=== PATIENT | female | born 1960 | race American Indian/Alaskan Native ===

== ENCOUNTER 2021-01-04 13:29 | Emergency (ER) | payer OTHER, MEDICAID ==
[2021-01-04 14:55] VITALS: BP 126/79
--- NOTE | 2021-01-04 15:07 | Emergency Department Report ---
ED General Adult HPI - General Chief complaint: Extremity Problem,Nontraumatic Stated complaint: RT GROIN/LEG PAIN Time Seen by Provider: 01/04/21 15:00 Source: patient Mode of arrival: Ambulatory Limitations: No Limitations - History of Present Illness Initial comments: 60-year-old female with a past medical history of hypertension, hyperlipidemia, arthritis, right lower extremity DVT and PE presents to the ER today with complaints of right medial thigh and right groin pain. Patient states that she was riding a bicycle about 4 days ago about 10 minutes. After riding a bicycle she started having the pain in the right groin and right medial thigh. She denies any apparent injury. She states that the pain is worse when she ambulates and stands. She reports mild swelling but mainly to the ankle. Patient states that she thought it was just related to muscle spasms but when it was not getting better she was concerned it could be related to a blood clot. She also reports that she recently drove 4 hours from [place] but was yesterday. She denies any recent surgeries, hospitalizations, any diagnosis of cancer or significant leg injury and she is not on any hormones. She denies any associated chest pain or shortness of breath. 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 She states that she had an IVC filter placed. She did not had ankle surgery a couple years ago after which she again developed another DVT and also a PE despite the IVC filter. She states that she was placed on Eliquis but was only on Eliquis for 6 months. She states she currently does take baby aspirin daily. Complaint: Right thigh/groin pain -: Gradual, days(s) (For) - Related Data Previous Rx's Medication Instructions Recorded Last Taken Type Apixaban [Eliquis] 5 mg PO BID 30 Days tablet 01/04/21 Unknown Rx Apixaban [Eliquis] 10 mg PO BID 7 Days tablet 01/04/21 Unknown Rx Allergies Allergy/AdvReac Type Severity Reaction Status Date / Time No Known Allergies Allergy Unverified 01/04/21 14:52 ED Review of Systems ROS: Stated complaint: RT GROIN/LEG PAIN Other details as noted in HPI Comment: All other systems reviewed and negative Constitutional: denies: chills, diaphoresis, fever, malaise, weakness Eyes: denies: eye pain, eye discharge, vision change ENT: denies: ear pain, throat pain Respiratory: denies: cough, shortness of breath, wheezing Cardiovascular: denies: chest pain, palpitations, dyspnea on exertion, orthopnea, edema, syncope, paroxysmal nocturnal dyspnea Gastrointestinal: denies: abdominal pain, nausea, diarrhea, constipation, hematemesis, melena, hematochezia Genitourinary: denies: urgency, dysuria, discharge Musculoskeletal: arthralgia, myalgia Skin: denies: rash, lesions, change in color, change in hair/nails, pruritus Neurological: denies: headache, weakness, paresthesias Psychiatric: denies: anxiety, depression ED Past Medical Hx - Past Medical History Previous Medical History?: Yes Hx Hypertension: Yes Hx Deep Vein Thrombosis: Yes - Medications Home Medications: Home Medications Medication Instructions Recorded Confirmed Last Taken Type Apixaban [Eliquis] 5 mg PO BID 30 Days tablet 01/04/21 Unknown Rx Apixaban [Eliquis] 10 mg PO BID 7 Days tablet 01/04/21 Unknown Rx ED Physical Exam - General Limitations: No Limitations General appearance: alert, in no apparent distress - Head Head exam: Present: atraumatic, normocephalic, normal inspection - Eye Eye exam: Present: normal appearance, PERRL, EOMI Pupils: Present: normal accommodation - ENT ENT exam: Present: normal exam, mucous membranes moist - Neck Neck exam: Present: normal inspection - Respiratory Respiratory exam: Present: normal lung sounds bilaterally. Absent: respiratory distress - Cardiovascular Cardiovascular Exam: Present: regular rate, normal rhythm, normal heart sounds - GI/Abdominal GI/Abdominal exam: Present: soft. Absent: distended, tenderness, guarding, rebound - Extremities Exam Extremities exam: Present: normal inspection, full ROM, tenderness (Mild medial thigh tenderness), normal capillary refill, calf tenderness (Right calf tenderness), other (Dorsalis pedis pulse and posterior tibialis pulse normal. Patient gait is normal). Absent: pedal edema, joint swelling - Neurological Exam Neurological exam: Present: alert, oriented X3, CN II-XII intact, normal gait - Psychiatric Psychiatric exam: Present: normal affect, normal mood - Skin Skin exam: Present: intact ED Course Vital Signs 01/04/21 14:54 Temperature 98.2 F Pulse Rate 66 Respiratory 16 Rate Blood Pressure 126/79 [Right] O2 Sat by Pulse 100 Oximetry ED Medical Decision Making - Lab Data Result diagrams: 01/04/21 16:09 01/04/21 16:09 - Radiology Data Radiology results: report reviewed Ordering Physician: SAM RATLIFF Date of Service: 01/04/21 Procedure(s): VL venous duplex LE RT Accession Number(s): [id number] cc: SAM RATLIFF DUPLEX DOPPLER LOWER EXTREMITY VEINS, RIGHT INDICATION / CLINICAL INFORMATION: RLE pain/hx dvt/PE. TECHNIQUE: Duplex doppler imaging was performed through the veins of the right lower extremity using venous compression and other maneuvers. COMPARISON: None available. FINDINGS: RIGHT COMMON FEMORAL VEIN: Acute thrombus. RIGHT FEMORAL VEIN: Negative. RIGHT POPLITEAL VEIN: Negative. RIGHT CALF VEINS: Negative. ADDITIONAL FINDINGS: None. IMPRESSION: 1. Positive for DVT within the distal right common femoral vein. Signer Name: Genesis Delgado MD Signed: 01/04/2021 4:26 PM Workstation Name: [id number] Transcribed By: SS Dictated By: GENESIS DELGADO Electronically Authenticated By: GENESIS DELGADO Signed Date/Time: 01/04/211625 DD/ 25 TD/TT: - Medical Decision Making Venous doppler of right lower ext shows + DVT in the distal right femoral vein. Patient has no chest pain or shortness of breath. She is well-appearing, nontoxic and not in any acute distress. No signs of compartment syndrome on exam. He is neurologically intact with a normal gait in the ER. Discussed case with Dr Najera, as Dr Cruz has left for the day -no indication for admission at this time patient can be started on Eliquis and to follow-up with her PCP. Patient has been on Eliquis in the past for DVTs and therefore she will be started again on Eliquis to start 10 mg twice a day for 7 days and then 5 mg twice a day afterwards. She is scheduled to return to [place] in a week, recommend that she follows up with her primary care doctor soon as she gets back. Patient expressed understanding of instructions and agree with plan. Patient stable at time of discharge. Critical care attestation.: If time is entered above; I have spent that time in minutes in the direct care of this critically ill patient, excluding procedure time. ED Disposition Clinical Impression: DVT of lower extremity (deep venous thrombosis) Disposition: TO HOME OR SELFCARE Is pt being admited?: No Does the pt Need Aspirin: No Condition: Stable Instructions: Deep Vein Thrombosis Additional Instructions: Take the Eliquis as prescribed. Take Tylenol as needed for pain. It is important that you follow-up with your primary care doctor or return to [place] next week. Return to the ER if there is any significant swelling to the right leg, or you start developing chest pain or shortness of breath. Prescriptions: Apixaban [Eliquis] 10 mg PO BID 7 Days tablet Apixaban [Eliquis] 5 mg PO BID 30 Days tablet Referrals: PRIMARY CARE, [Primary Care Provider] - 3-5 Days Time of Disposition: 17:21
--- NOTE | 2021-01-04 16:31 | Vascular Lab Report ---
DUPLEX DOPPLER LOWER EXTREMITY VEINS, RIGHT INDICATION / CLINICAL INFORMATION: RLE pain/hx dvt/PE. TECHNIQUE: Duplex doppler imaging was performed through the veins of the right lower extremity using venous comp ression and other maneuvers. COMPARISON: None available. FINDINGS: RIGHT COMMON FEMORAL VEIN: Acute thrombus. RIGHT FEMORAL VEIN: Negative. RIGHT POPLITEAL VEIN: Negative. RIGHT CALF VEINS: Negative. ADDITIONAL FINDINGS: None. IMPRESSION: 1. Positive for DVT within the distal right common femoral vein. Signer Name: Delmer Delgado MD Signed: 01/04/2021 4:26 PM Workstation Name: [id number]
[2021-01-04 16:40] LABS: Basophils # (Auto) 0.1 K/mm3 (0.0-0.1); Basophils % (Auto) 0.9 % (0.0-1.8); Eosinophils # (Auto) 0.1 K/mm3 (0.0-0.4); Eosinophils % (Auto) 1.4 % (0.0-4.3); Hematocrit 41.3 % (30.3-42.9); Hemoglobin 13.8 gm/dl (10.1-14.3); Lymphocytes # (Auto) 2.7 K/mm3 (1.2-5.4); Lymphocytes % (Auto) 33.6 % (13.4-35.0); Mean Corpuscular HGB Conc 34 % (30-34); Mean Corpuscular Volume 96 fl (79-97); Monocytes # (Auto) 0.8 K/mm3 (0.0-0.8); Monocytes % (Auto) 10.6 % (0.0-7.3); Platelet Count 234 K/mm3 (140-440); Red Cell Distribution Width 13.8 % (13.2-15.2)
[2021-01-04 16:51] LABS: INR 0.88 (0.87-1.13)
[2021-01-04 16:52] LABS: Partial Thromboplastin Time 24.8 Sec. (24.2-36.6)
[2021-01-04 16:56] LABS: Alanine Aminotransferase 15 units/L (7-56); Albumin 3.9 g/dL (3.9-5); BUN/Creatinine Ratio 18; Blood Urea Nitrogen 20 mg/dL (7-17); Calcium 9.7 mg/dL (8.4-10.2); Hemolysis Index 148
[2021-01-04] MEDS ORDERED: APIXABAN 5 MG TAB PO STA (17:14)
== END 2021-01-04 17:55 | disposition home or self-care (01) ==
LOC: ED 13:29
DX: I82.401 Acute embolism and thrombosis of unspecified deep veins of right lower extremity (principal); I10 Essential (primary) hypertension; Z79.899 Other long term (current) drug therapy
CPT/HCPCS: 36415; 80053; 85025; 85610; 85730

== ENCOUNTER 2021-01-08 08:43 | Emergency (ER) | payer OTHER, MEDICAID ==
--- NOTE | 2021-01-08 09:08 | Event Note ---
ED Screening Note Date of service: 01/08/21 Time: 09:05 ED Screening Note: 60-year-old -[place]ones[place] female presents to the emergency room complaining of right groin pain and right lower leg pain. She was seen on Wednesday and diagnosed with a distal right common femoral vein DVT. Patient was placed on Eliquis. Patient was instructed to take Tylenol for pain. Patient has not taken anything for pain. Patient is concerned that she needs to go back to [place] but is a 4-hour drive. Patient's primary care provider is in [facility]. This initial assessment/diagnostic orders/clinical plan/treatment(s) is/are subject to change based on patients health status, clinical progression and re- assessment by fellow clinical providers in the ED. Further treatment and workup at subsequent clinical providers discretion. Patient/guardian urged not to elope from the ED as their condition may be serious if not clinically assessed and managed. Initial orders include:
[2021-01-08] MEDS ORDERED: HYDROcodone/ACETAMINOPHEN 5-325 MG TAB PO ONE (11:03)
--- NOTE | 2021-01-08 11:38 | Emergency Department Report ---
HPI - General Chief Complaint: Pain General Time Seen by Provider: 01/08/21 09:25 - HPI HPI: This is a 60-year-old female presents to the emergency department with a complaint of right groin pain and some generalized fatigue/weakness. The patient was here 4 days ago and was found to have a right distal common femoral vein DVT. She was started on Eliquis at that time and says she has been compliant with anticoagulation. She does have a history of 2 previous blood clots years ago. She also has a history of hypertension, obstructive sleep apnea and high cholesterol. Patient says that she started having some improvement in her groin pain after starting the Eliquis but the pain returned. She denies any headache, chest pain, shortness of breath. She denies any increased swelling of the leg, skin color changes, numbness or paresthesias. Other than her home medications she has not taken anything for symptoms prior to presentation today. She has a primary care physician, Dr. Bhandari, but has not seen them regarding her symptoms ED Past Medical Hx - Past Medical History Hx Hypertension: Yes Hx Deep Vein Thrombosis: Yes - Social History Smoking Status: Never Smoker Substance Use Type: None - Medications Home Medications: Home Medications Medication Instructions Recorded Confirmed Last Taken Type Apixaban [Eliquis] 5 mg PO BID 30 Days tablet 01/04/21 Unknown Rx Apixaban [Eliquis] 10 mg PO BID 7 Days tablet 01/04/21 Unknown Rx ED Review of Systems ROS: Stated complaint: BLOOD CLOTS Other details as noted in HPI Comment: All other systems reviewed and negative Constitutional: weakness. denies: chills, fever Eyes: denies: eye pain, vision change ENT: denies: ear pain, throat pain Respiratory: denies: cough, shortness of breath Cardiovascular: denies: chest pain, palpitations Gastrointestinal: denies: abdominal pain, vomiting Genitourinary: denies: dysuria, discharge Musculoskeletal: myalgia. denies: back pain Skin: denies: rash, lesions Neurological: denies: headache, numbness, paresthesias Physical Exam - Physical Exam Vital Signs: Vital Signs 01/08/21 01/08/21 08:48 09:05 Temperature 98.1 F 97.7 F Pulse Rate 71 Respiratory 16 Rate Blood Pressure 144/96 [144/96] O2 Sat by Pulse 97 Oximetry Physical Exam: GENERAL: The patient is well-developed well-nourished. HENT: Normocephalic. Atraumatic. Patient has moist mucous membranes. EYES: Extraocular motions are intact. NECK: Supple. Trachea is midline. CHEST/LUNGS: Clear to auscultation. There is no respiratory distress noted. HEART/CARDIOVASCULAR: Regular. There is no tachycardia. There is no murmur. ABDOMEN: Abdomen is soft, nontender. Patient has normal bowel sounds. SKIN: Skin is warm and dry. NEURO: The patient is awake, alert, and oriented. The patient is cooperative. The patient has no focal neurologic deficits. Normal speech. Cranial nerves II through XII grossly intact. No facial asymmetry. No pronator drift or dysmetria. MUSCULOSKELETAL: There is no tenderness or deformity. There is no limitation range of motion. +2/4 dorsalis pedis pulse to the affected right lower ext remity with capillary refill less than 2 seconds. ED Course Vital Signs 01/08/21 01/08/21 08:48 09:05 Temperature 98.1 F 97.7 F Pulse Rate 71 Respiratory 16 Rate Blood Pressure 144/96 [144/96] O2 Sat by Pulse 97 Oximetry ED Medical Decision Making - Lab Data Result diagrams: 01/08/21 11:24 01/08/21 11:24 Lab Results 01/08/21 01/08/21 01/08/21 Range/Units 11:24 11:24 11:24 WBC 5.9 (4.5-11.0) K/mm3 RBC 4.17 (3.65-5.03) M/mm3 Hgb 13.4 (10.1-14.3) gm/dl Hct 40.3 (30.3-42.9) % MCV 97 (79-97) fl MCH 32 (28-32) pg MCHC 33 (30-34) % RDW 13.4 (13.2-15.2) % Plt Count 225 (140-440) K/mm3 Lymph % (Auto) 38.2 H (13.4-35.0) % [place] % (Auto) 9.6 H (0.0-7.3) % Eos % (Auto) 1.5 (0.0-4.3) % Baso % (Auto) 1.1 (0.0-1.8) % Lymph # (Auto) 2.2 (1.2-5.4) K/mm3 [place] # (Auto) 0.6 (0.0-0.8) K/mm3 Eos # (Auto) 0.1 (0.0-0.4) K/mm3 Baso # (Auto) 0.1 (0.0-0.1) K/mm3 Seg Neutrophils % 49.6 (40.0-70.0) % Seg Neutrophils # 2.9 (1.8-7.7) K/mm3 Sodium 140 (137-145) mmol/L Potassium 4.3 (3.6-5.0) mmol/L Chloride 103.9 (98-107) mmol/L Carbon Dioxide 30 (22-30) mmol/L Anion Gap 10 mmol/L BUN 18 H (7-17) mg/dL Creatinine 1.1 (0.6-1.2) mg/dL Estimated GFR > 60 ml/min BUN/Creatinine Ratio 16 % Glucose 95 (65-100) mg/dL Calcium 9.6 (8.4-10.2) mg/dL TSH 2.140 (0.270-4.200) mlU/mL - EKG Data -: EKG Interpreted by Ma EKG shows normal: sinus rhythm, axis, intervals, QRS complexes (Q waves to the inferior and septal leads), ST-T waves (Flattening of the T waves diffusely) Rate: bradycardia (55 bpm) - EKG Data When compared to previous EKG there are: previous EKG unavailable Interpretation: other (Sinus rhythm, normal axis, normal intervals, rate of 55 bpm, Q waves to the septal and inferior leads, flattened T waves diffusely. No ST elevation RI) - Medical Decision Making This patient presents with the complaint of some generalized weakness and fatigue since taking the Eliquis for her right lower extremity DVT. She also complains of some pain to the right groin where the patient has a known DVT to the distal right common femoral vein. The right leg does not appear significantly swollen in comparison to the left. She is neurovascularly intact. The patient has been compliant with anticoagulation. On examination she does not have any focal, motor or sensory deficits and her cranial nerves are intact. EKG did not have any morphology consistent with ST elevation myocardial infarction or any arrhythmia. Labs were unremarkable including CBC, metabolic panel and normal thyroid function. Patient was given a pain pill and upon reevaluation is feeling improved in regards to the groin pain. The patient does not have any complaints of shortness of breath, back pain, chest pain for concern of a pulmonary embolism, and once again the patient has been compliant with anticoagulation. Vital signs have been reassuring throughout her ED course. For these reason she appears safe for discharge home at this time. She has been instructed to follow-up with her primary care physician and has been given outpatient referral for vascular surgery. Critical Care Time: No Critical care attestation.: If time is entered above; I have spent that time in minutes in the direct care of this critically ill patient, excluding procedure time. ED Disposition Clinical Impression: History of DVT (deep vein thrombosis), Weakness Fatigue Qualifiers: Fatigue type: unspecified Qualified Code(s): R53.83 - Other fatigue Disposition: TO HOME OR SELFCARE Is pt being admited?: No Condition: Stable Instructions: Fatigue, Weakness Additional Instructions: Please follow-up with your primary care physician in the next few days. I am giving you a referral for a local vascular surgeon, Dr. Garcia, to follow-up regarding your right leg DVT. Continue with your anticoagulation. Return to the emergency department with any worsening of your symptoms, new or concerning symptoms not addressed during this current emergency department visit, or with any acute distress. Referrals: ELVIA TOBIAS MD [Primary Care Provider] - 3-5 Days ANGELIA GARCIA MD [Staff Physician] - 3-5 Days Time of Disposition: 12:26
[2021-01-08 11:51] LABS: Basophils # (Auto) 0.1 K/mm3 (0.0-0.1); Basophils % (Auto) 1.1 % (0.0-1.8); Eosinophils # (Auto) 0.1 K/mm3 (0.0-0.4); Eosinophils % (Auto) 1.5 % (0.0-4.3); Hematocrit 40.3 % (30.3-42.9); Hemoglobin 13.4 gm/dl (10.1-14.3); Lymphocytes # (Auto) 2.2 K/mm3 (1.2-5.4); Lymphocytes % (Auto) 38.2 % (13.4-35.0); Mean Corpuscular HGB Conc 33 % (30-34); Mean Corpuscular Volume 97 fl (79-97); Monocytes # (Auto) 0.6 K/mm3 (0.0-0.8); Monocytes % (Auto) 9.6 % (0.0-7.3); Platelet Count 225 K/mm3 (140-440); Red Blood Count 4.17 M/mm3 (3.65-5.03); Red Cell Distribution Width 13.4 % (13.2-15.2)
[2021-01-08 11:58] LABS: BUN/Creatinine Ratio 16; Blood Urea Nitrogen 18 mg/dL (7-17); Calcium 9.6 mg/dL (8.4-10.2); Hemolysis Index 17
[2021-01-08 12:04] VITALS: BP 142/90
--- NOTE | 2021-01-09 09:37 | Electrocardiograph Report ---
[facility] Test Date: 2021-01-08 Test Time: 12:24:37 Pat Name: ROCIO DOBSON Department: Room: Gender: F Testing Manager: NEISHA : 1960 Requested By: BRANDON CRUZ Order Number: [id number] Reading MD: Carlos Plunkett Measurements Intervals [place] Rate: 55 P: 24 MO: 159 QRS: -8 QRSD: 98 T: -14 QT: 439 QTc: 419 Interpretive Statements Sinus bradycardia Inferior infarct, old Anteroseptal infarct, age indeterminate No previous ECG available for comparison Electronically Signed On 01-09-2021 9:36:58 EDT by Carlos Plunkett
== END 2021-01-08 12:57 | disposition home or self-care (01) ==
LOC: ED 08:43
DX: R53.83 Other fatigue (principal); R53.1 Weakness; I10 Essential (primary) hypertension; Z86.718 Personal history of other venous thrombosis and embolism; Z79.899 Other long term (current) drug therapy
CPT/HCPCS: 36415; 80048; 84443; 85025; 93005

== ENCOUNTER 2021-12-01 17:11 | Emergency (ER) | payer OTHER, MEDICAID ==
[2021-12-01 17:16] VITALS: BP 132/83
[2021-12-01] MEDS ORDERED: DEXAMETHASONE 4 MG TAB PO ONE (19:08)
[2021-12-01] MEDS ORDERED: diphenhydrAMINE 25 MG CAP PO ONE (19:09)
[2021-12-01] MEDS ORDERED: METOCLOPRAMIDE 10 MG TAB PO ONE (19:09)
--- NOTE | 2021-12-01 21:29 | Cat Scan Report ---
CT HEAD WITHOUT CONTRAST INDICATION / CLINICAL INFORMATION: headache. TECHNIQUE: All CT scans at this location are performed using CT dose reduction for ALARA by means of automated exposure control. COMPARISON: None available. FINDINGS: HEMORRHAGE: None. EXTRA-AXIAL SPACES: Normal in size and morphology for the patient's age. VENTRICULAR SYSTEM: Normal in size and morphology for the patient's age. CEREBRAL PARENCHYMA: No significant abnormality. No acute territorial infarct. MIDLINE SHIFT / HERNIATION: None. CEREBELLUM / BRAINSTEM: No significant abnormality. ORBITS: Mild tortuosity of optic nerves. SOFT TISSUES: No significant abnormality. SKULL: No significant abnormality. PARANASAL SINUSES / MASTOID AIR CELLS: Normal as visualized. ADDITIONAL FINDINGS: Partially empty sella. IMPRESSION: 1. No acute abnormality identified. 2. Findings suggestive of idiopathic intracranial hypertension. Recommend clinical correlation. Signer Name: Teodoro Jacobs MD Signed: 12/01/2021 9:25 PM Workstation Name: [id number]
--- NOTE | 2021-12-01 22:31 | Emergency Department Report ---
ED Headache HPI - General Chief Complaint: Headache Stated Complaint: BACK OF HEAD PAIN Time Seen by Provider: 12/01/21 19:08 - History of Present Illness Initial Comments: 61-year-old black female with a past medical history of hypertension, PE, and DVT who is currently on Eliquis presents to the emergency department for evaluation of headache pain in the back of her head that started yesterday. She states that pain is a dull ache in the back of her head that is worse when she turns her head a certain way. She states that she took Tylenol without any improvement. She states that pain at its worst is 7 out of 10. She denies injury, dizziness, vision changes, alteration in gait, forgetfulness, nausea, and vomiting. She states that she went to urgent care for headache today and was sent here for further evaluation and possible CT scan. Timing/Duration: 24 hours Quality: moderate, achy Head Injury Location: occipital Modifying Factors: improves with: movement Associated Symptoms: denies: confusion, fatigue, facial pain, fever/chills, flushing, loss of consciousness, nausea/vomiting, nasal congestion, nasal drainage, numbness in legs/feet, rash, seizures, sinus infection, stiff neck, vision changes, weakness Allergies/Adverse Reactions: Allergies No Known Allergies Allergy (Verified 12/01/21 17:19) Home Medications: Ambulatory Orders Apixaban [Eliquis] 5 mg PO BID 30 Days tablet 01/04/21 Apixaban [Eliquis] 10 mg PO BID 7 Days tablet 01/04/21 ED Review of Systems ROS: Stated complaint: BACK OF HEAD PAIN Other details as noted in HPI Comment: All other systems reviewed and negative Constitutional: denies: chills, fever Eyes: denies: eye pain, eye discharge, vision change ENT: denies: ear pain, hearing loss, epistaxis, congestion Respiratory: denies: cough, orthopnea, SOB with exertion, SOB at rest Cardiovascular: denies: chest pain, palpitations, dyspnea on exertion, orthopnea, edema, syncope, paroxysmal nocturnal dyspnea Endocrine: no symptoms reported Gastrointestinal: denies: abdominal pain, nausea, vomiting, diarrhea, hematemesis, melena, hematochezia Genitourinary: denies: urgency, dysuria, frequency, hematuria Musculoskeletal: denies: back pain Skin: denies: rash, lesions, change in color, change in hair/nails Neurological: headache. denies: weakness, numbness, paresthesias, confusion, abnormal gait, vertigo Psychiatric: denies: anxiety, depression Hematological/Lymphatic: denies: easy bleeding, easy bruising ED Past Medical Hx - Past Medical History Hx Hypertension: Yes Hx Deep Vein Thrombosis: Yes - Social History Smoking Status: Never Smoker Substance Use Type: None - Medications Home Medications: Home Medications Medication Instructions Recorded Confirmed Last Taken Type Apixaban [Eliquis] 5 mg PO BID 30 Days tablet 01/04/21 Unknown Rx Apixaban [Eliquis] 10 mg PO BID 7 Days tablet 01/04/21 Unknown Rx ED Physical Exam - General Limitations: No Limitations General appearance: alert, in no apparent distress - Head Head exam: Present: atraumatic, normocephalic - Eye Eye exam: Present: normal appearance, PERRL. Absent: scleral icterus, conjunctival injection, periorbital swelling, periorbital tenderness Pupils: Present: normal accommodation - Neck Neck exam: Present: normal inspection. Absent: tenderness, lymphadenopathy - Respiratory Respiratory exam: Present: normal lung sounds bilaterally. Absent: respiratory distress, wheezes, rales, rhonchi, stridor, chest wall tenderness - Cardiovascular Cardiovascular Exam: Present: regular rate, normal heart sounds - GI/Abdominal GI/Abdominal exam: Present: soft, normal bowel sounds. Absent: distended, tenderness, guarding, rebound, rigid - Extremities Exam Extremities exam: Present: normal inspection - Back Exam Back exam: Present: normal inspection. Absent: CVA tenderness (R), CVA ten derness (L), paraspinal tenderness, vertebral tenderness - Neurological Exam Neurological exam: Present: alert, oriented X3, CN II-XII intact, normal gait, reflexes normal. Absent: altered, motor sensory deficit - Expanded Neurological Exam Expanded Patient oriented to: Present: person, place, time Speech: Present: fluid speech Cranial nerves: EOM's Intact: Normal, Gag Reflex: Normal, Tongue Deviation: Normal, Nystagmus: Normal, Facial Sensation: Normal, Facial Palsy with Forehead Movement: Normal, Facial Palsy without Forehead Movement: Normal Ataxia: Absent: yes Sensory exam: Upper Extremity Light Touch: Normal, Upper Extremity Temperature: Normal, Lower Extremity Light Touch: Normal, Lower Extremity Temperature: Normal Motor strength exam: RUE: 5, LUE: 5, RLE: 5, LLE: 5 Best Eye Response ([place]): (4) open spontaneously Best Motor Response ([place]): (6) obeys commands Best Verbal Response ([place]): (5) oriented [place] Total: 15 - Psychiatric Psychiatric exam: Present: normal affect, normal mood - Skin Skin exam: Present: warm, dry, intact, normal color ED Course Vital Signs 12/01/21 17:11 Temperature 98.6 F Pulse Rate 74 Respiratory 14 Rate Blood Pressure 132/83 [Right] O2 Sat by Pulse 97 Oximetry ED Medical Decision Making - Radiology Data Radiology results: report reviewed CT scan of head without contrast IMPRESSION: 1. No acute abnormality identified. 2. Findings suggestive of idiopathic intracranial hypertension. Recommend c linical correlation. - Medical Decision Making 61-year-old black female with a past medical history of hypertension, PE, and DVT who is currently on Eliquis presents to the emergency department for evaluation of headache pain in the back of her head that started yesterday. She states that pain is a dull ache in the back of her head that is worse when she turns her head a certain way. She states that she took Tylenol without any improvement. She states that pain at its worst is 7 out of 10. She denies injury, dizziness, vision changes, alteration in gait, forgetfulness, nausea, and vomiting. She states that she went to urgent care for headache today and was sent here for further evaluation and possible CT scan. No acute abnormalities noted on CT scan, but CT scan suspicious for idiopathic intracranial hypertension. Patient without any defects on neurologic exam. She remains alert and oriented with steady gait. Case and CT scan discussed with Dr. Sandoval and patient is okay to be discharged home to follow-up with neurology for further evaluation. Results reviewed with patient along with plan of care, and she verbalized understanding of and agreement with plan of care. Critical care attestation.: If time is entered above; I have spent that time in minutes in the direct care of this critically ill patient, excluding procedure time. ED Disposition Clinical Impression: Headache Qualifiers: Headache type: unspecified Headache chronicity pattern: acute headache Intractability: not intractable Qualified Code(s): R51.9 - Headache, unspecified Disposition: 01 HOME / SELF CARE / HOMELESS Is pt being admited?: No Does the pt Need Aspirin: No Condition: Stable Instructions: General Headache Without Cause, [id number], Idiopathic Intracranial Hypertension Additional Instructions: Follow-up with neurology for further evaluation and management. Referrals: ANGELITA JARVIS MD [Primary Care Provider] - 3-5 Days BENNIE CEJA MD [Referring] - 3-5 Days Time of Disposition: 22:30
== END 2021-12-01 23:11 | disposition home or self-care (01) ==
LOC: ED 17:11
DX: R51.9 Headache, unspecified (principal); I10 Essential (primary) hypertension
CPT/HCPCS: 70450; 99283; J8540

== ENCOUNTER 2021-12-04 11:49 | Emergency (ER) | payer OTHER, MEDICAID ==
[2021-12-04] MEDS ORDERED: ACETAMINOPHEN 500 MG TAB PO ONE (12:48)
--- NOTE | 2021-12-04 13:59 | Emergency Department Report ---
ED General Adult HPI - General Chief complaint: Headache Stated complaint: HEAD PAIN Time Seen by Provider: 12/04/21 12:46 Source: patient Mode of arrival: Ambulatory Limitations: No Limitations - History of Present Illness Initial comments: This pleasant 61-year-old female presents the emergency department with chief complaint of left-sided neck pain. She is a history of blood clots in her lungs and is currently on Eliquis. She reports initially started 5 days ago. She reports that initially started in the neck suddenly. She went to urgent care the next day and was referred to the emergency department due to headache with her blood thinner use.. She had a CT of her head that was unremarkable, given medications in the ER and subsequently discharged with hydrocodone. She reports she left feeling better without any pain and then the next day the pain returned. She denies any fever, chills, night sweats, headache, dizziness, blurry vision, nausea,, diarrhea, chest pain, shortness of breath, weakness or any other associated symptoms. Severity scale (0 -10): 0 - Related Data Previous Rx's Medication Instructions Recorded Last Taken Type Apixaban [Eliquis] 5 mg PO BID 30 Days tablet 01/04/21 Unknown Rx Apixaban [Eliquis] 10 mg PO BID 7 Days tablet 01/04/21 Unknown Rx methOCARBAMOL [Robaxin TAB] 500 mg PO Q6H PRN #20 12/04/21 Unknown Rx methylPREDNISolone [Medrol 4MG 4 mg PO ONCE #1 12/04/21 Unknown Rx DOSEPAK (21 tabs)] traMADoL [Ultram 50 MG tab] 50 mg PO Q4HR PRN #12 tablet 12/04/21 Unknown Rx Allergies Allergy/AdvReac Type Severity Reaction Status Date / Time No Known Allergies Allergy Verified 12/01/21 17:19 ED Review of Systems ROS: Stated complaint: HEAD PAIN Other details as noted in HPI Comment: All other systems reviewed and negative Constitutional: denies: chills, fever Eyes: denies: eye pain, eye discharge, vision change ENT: denies: ear pain, throat pain Respiratory: denies: cough, shortness of breath, wheezing Cardiovascular: denies: chest pain, palpitations Endocrine: no symptoms reported Gastrointestinal: denies: abdominal pain, nausea, diarrhea Genitourinary: denies: urgency, dysuria, discharge Musculoskeletal: as per HPI, myalgia. denies: back pain, joint swelling, arthralgia Skin: denies: rash, lesions Neurological: denies: headache, weakness, paresthesias Psychiatric: denies: anxiety, depression Hematological/Lymphatic: denies: easy bleeding, easy bruising ED Past Medical Hx - Past Medical History Hx Hypertension: Yes Hx Deep Vein Thrombosis: Yes - Social History Smoking Status: Never Smoker Substance Use Type: None - Medications Home Medications: Home Medications Medication Instructions Recorded Confirmed Last Taken Type Apixaban [Eliquis] 5 mg PO BID 30 Days tablet 01/04/21 Unknown Rx Apixaban [Eliquis] 10 mg PO BID 7 Days tablet 01/04/21 Unknown Rx methOCARBAMOL [Robaxin TAB] 500 mg PO Q6H PRN #20 12/04/21 Unknown Rx methylPREDNISolone [Medrol 4MG 4 mg PO ONCE #1 12/04/21 Unknown Rx DOSEPAK (21 tabs)] traMADoL [Ultram 50 MG tab] 50 mg PO Q4HR PRN #12 tablet 12/04/21 Unknown Rx ED Physical Exam - General Limitations: No Limitations General appearance: alert, in no apparent distress - Head Head exam: Present: atraumatic, normocephalic - Eye Eye exam: Present: normal appearance, PERRL, EOMI Pupils: Present: normal accommodation - ENT ENT exam: Present: normal exam, normal orophraynx, mucous membranes moist - Neck Neck exam: Present: normal inspection, tenderness (There is tenderness to the left paraspinal muscles extending into the left upper trapezius muscle. There is pain with a Spurling sign to the left. There is no meningismus), full ROM. Absent: meningismus - Respiratory Respiratory exam: Present: normal lung sounds bilaterally. Absent: respiratory distress, wheezes, rales, rhonchi, stridor - Cardiovascular Cardiovascular Exam: Present: regular rate, normal rhythm, normal heart sounds. Absent: systolic murmur, diastolic murmur, rubs, gallop - GI/Abdominal GI/Abdominal exam: Present: soft, normal bowel sounds. Absent: distended, tenderness, guarding, rebound, rigid - Extremities Exam Extremities exam: Present: normal inspection, full ROM, normal capillary refill. Absent: calf tenderness - Back Exam Back exam: Present: normal inspection, full ROM. Absent: tenderness, CVA tenderness (R), CVA tenderness (L) - Neurological Exam Neurological exam: Present: alert, oriented X3, CN II-XII intact, normal gait, other (Normal cranial nerves II through XII intact, normal strength and sensation of the bilateral upper and lower extremities, normal finger-nose and [id number] bilaterally. Normal gait without ataxia. No focal neurologic deficits) - Psychiatric Psychiatric exam: Present: normal affect, normal mood - Skin Skin exam: Present: warm, dry, intact, normal color. Absent: rash ED Course Vital Signs 12/04/21 12/04/21 12:02 12:05 Temperature 98.3 F Pulse Rate 64 Respiratory 18 Rate Blood Pressure 142/93 [Right] O2 Sat by Pulse 98 Oximetry ED Medical Decision Making - Radiology Data Radiology results: report reviewed, image reviewed CT cervical spine wo con INDICATION / CLINICAL INFORMATION: 61 years Female; left sided neck pain x 4 DAYS . TECHNIQUE: Axial CT images of the cervical spine were obtained. Sagittal and coronal reformatted images were produced. All CT scans at this location are performed using CT dose reduction for ALARA by means of automated exposure control. COMPARISON: None available. FINDINGS: POST-SURGICAL CHANGES: None. ALIGNMENT: There is mild reversal the cervical lordosis without significant spondylolisthesis. VERTEBRAE: There is notable disc space narrowing with endplate changes from C5- C6 to C7-T1. Additionally, the findings are compatible with associated geodes at C5-6 and C6- 7. Milder degenerative changes are noted at C4-5. There is no clear CT evidence of acute fracture of the cervical spine. INTRAVERTEBRAL DISCS: The left facet and uncovertebral joint hypertrophy at C2- 3 results in moderate left foraminal narrowing. There is marked left foraminal narrowing at C3-4. Milder narrowing is seen on the right. The spondylosis at C4-5 effaces the ventral subarachnoid space. There is also marked left foraminal narrowing with encroachment on the left lateral recess. There is marked left and moderate right foraminal narrowing at C5-6. The spondylosis at C6-7 effaces the ventral subarachnoid space. There appears be moderate left and mild right neural foraminal narrowing. There is moderate to marked left foraminal narrowing at C3 7- T1 with encroachment on the left lateral recess. PARASPINAL SOFT TISSUES: No prevertebral soft tissue fluid collections are identified. Rounded fat attenuation is noted anterior to the left longus colli muscles indicative of incidental lipoma. ADDITIONAL FINDINGS: None. IMPRESSION: 1. There is no CT evidence of acute fracture of the cervical spine. 2. There are multilevel advanced degenerative the changes as detailed above. Signer Name: Sandip Nixon MD Signed: 12/04/2021 2:19 PM Workstation Name: [id number] Transcribed By: MR Dictated By: Sandip Nixon MD Electronically Authenticated By: Sandip Nixon MD Signed Date/Time: 12/04/21 1419 - Medical Decision Making Patient presented with left-sided neck pain. It was easily reproducible on exam she had positive Spurling sign. Suspect this is musculoskeletal type pain. Patient no focal neurologic deficits on exam and NIH of 0. Patient had recent negative CT of her head and have a low suspicion for vascular issue. Dewayne mmended pain medication, muscle relaxer and short course of steroids and outpatient follow-up with orthopedic spine doctor. Recommend return emerge department any change or worsening symptoms. She verbalized understand the diagnosis, treatment and follow-up instructions and all of her questions were answered. - Differential Diagnosis Strain, sprain, HNP Critical care attestation.: If time is entered above; I have spent that time in minutes in the direct care of this critically ill patient, excluding procedure time. ED Disposition Clinical Impression: Degenerative disc disease, cervical Acute cervical myofascial strain Qualifiers: Encounter type: initial encounter Qualified Code(s): S16.1XXA - Strain of muscle, fascia and tendon at neck level, initial encounter Disposition: 01 HOME / SELF CARE / HOMELESS Is pt being admited?: No Condition: Stable Instructions: Cervical Radiculopathy Prescriptions: methylPREDNISolone [Medrol 4MG DOSEPAK (21 tabs)] 4 mg PO ONCE #1 methOCARBAMOL [Robaxin TAB] 500 mg PO Q6H PRN #20 PRN Reason: Spasms traMADoL [Ultram 50 MG tab] 50 mg PO Q4HR PRN #12 tablet PRN Reason: Pain Referrals: [facility] [Provider Group] - 3-5 Days Time of Disposition: 14:42
--- NOTE | 2021-12-04 14:24 | Cat Scan Report ---
CT cervical spine wo con INDICATION / CLINICAL INFORMATION: 61 years Female; left sided neck pain x 4 DAYS . TECHNIQUE: Axial CT images of the cervical spine were obtained. Sagittal and coronal reformatted images were pr oduced. All CT scans at this location are performed using CT dose reduction for ALARA by means of aut omated exposure control. COMPARISON: None available. FINDINGS: POST-SURGICAL CHANGES: None. ALIGNMENT: There is mild reversal the cervical lordosis without significant spondylolisthesis. VERTEBRAE: There is notable disc space narrowing with endplate changes from C5-C6 to C7-T1. Additiona lly, the findings are compatible with associated geodes at C5-6 and C6-7. Milder degenerative changes are noted at C4-5. There is no clear CT evidence of acute fracture of the cervical spine. INTRAVERTEBRAL DISCS: The left facet and uncovertebral joint hypertrophy at C2-3 results in moderate left foraminal narrowing. There is marked left foraminal narrowing at C3-4. Milder narrowing is seen on the right. The spondylosis at C4-5 effaces the ventral subarachnoid space. There is also marked left foraminal n arrowing with encroachment on the left lateral recess. There is marked left and moderate right forami nal narrowing at C5-6. The spondylosis at C6-7 effaces the ventral subarachnoid space. There appears be moderate left and mi ld right neural foraminal narrowing. There is moderate to marked left foraminal narrowing at C3 7-T1 with encroachment on the left lateral recess. PARASPINAL SOFT TISSUES: No prevertebral soft tissue fluid collections are identified. Rounded fat at tenuation is noted anterior to the left longus colli muscles indicative of incidental lipoma. ADDITIONAL FINDINGS: None. IMPRESSION: 1. There is no CT evidence of acute fracture of the cervical spine. 2. There are multilevel advanced degenerative the changes as detailed above. Signer Name: Sandip Nixon MD Signed: 12/04/2021 2:19 PM Workstation Name: [id number]
[2021-12-04 15:03] VITALS: BP 146/98
== END 2021-12-04 15:03 | disposition home or self-care (01) ==
LOC: ED 11:49
DX: S16.1XXA Strain of muscle, fascia and tendon at neck level, initial encounter (principal); M50.30 Other cervical disc degeneration, unspecified cervical region; X58.XXXA Exposure to other specified factors, initial encounter; Y93.89 Activity, other specified; Y92.89 Other specified places as the place of occurrence of the external cause; Y99.8 Other external cause status
CPT/HCPCS: 72125; 99283